=== PATIENT | male | born 1950 | race Caucasian/White ===

== ENCOUNTER 2017-02-04 14:27 | Emergency (ER) | payer MEDICARE, OTHER ==
[~2017-02-04] VITALS: Ht 175.3 cm; Wt 115.0 kg
[~2017-02-04 14:27] MED LIST: BAYER ASA325 MG PO; CIPROFLOXACN500 MG PO; CRESTOR10 MG PO; DEXILANT60 MG PO; E400400 UNIT OR; EXFORGE1 TA1 OR; EXFORGE1 TAB PO; FOLBEE OR; FOLBEE PO; GNP ASPIRIN325 M1 OR; LOVAZA1 GM PO; MULTIVITAM10 OR; NIASPAN1000 ER PO; ONDANSETRON4 MG PO; PREDNISONE20 MG PO; SOLU-MEDROL125 MG IM; TRICOR145 MG PO
[2017-02-04] MEDS ORDERED: DOCUSATE CAL240 MG PO (14:46)
[2017-02-04] MEDS ORDERED: FE TABS325 MG PO (14:47)
[2017-02-04] MEDS ORDERED: NORCO1 TA1 PO (14:48)
[2017-02-04 15:29] LABS: HEMATOCRIT 41.9 % (39.0-50.0); HEMOGLOBIN 13.5 g/dl (14.0-18.0); IMMATURE GRANULOCYTES 0.2 % (0.0-1.0); MEAN CELL VOLUME 78.8 fL CALC (80.0-100.0); MEAN CORPUSCULAR HGB 25.4 pG CALC (26.0-32.0); MEAN CORPUSCULAR HGB CONC 32.2 g/L CALC (32.0-36.0); NEUT# 6.37 thou/uL (1.82-7.42); RED BLOOD COUNT 5.32 mill/uL (4.70-6.10); RED CELL DISTRI WIDTH 15.4 % (11.5-15.5)
[2017-02-04 15:39] LABS: ALBUMIN 4.4 g/dL (3.2-5.0); ALKALINE PHOSPHATASE 55 u/l (38-126); AMYLASE 59 u/l (30-110); ANION GAP 18 (6-22 (CALC)); BILIRUBIN, TOTAL 0.6 mg/dL (0.0-1.4); BUN 20 mg/dL (8-23); BUN/CREATININE RATIO 14 (12-20 (CALC)); CALCIUM 9.8 mg/dL (8.4-10.2); CARBON DIOXIDE 25 mmol/l (22-30); CHLORIDE 102 mmol/l (95-108); CREATININE 1.4 mg/dL (0.7-1.3); GFR 51 ML/MIN (>=60 (CALC)); GFR FOR AFR.AMER. > 60 ML/MIN (>=60 (CALC)); GLUCOSE 114 mg/dL (82-115); LIPASE 78 u/l (23-300); POTASSIUM 4.2 mmol/l (3.5-5.1); SGOT/AST 30 u/l (19-48); SGPT/ALT 52 u/l (11-66); SODIUM 141 mmol/l (137-146); TOTAL PROTEIN 8.2 g/dL (6.3-8.2)
[2017-02-04 15:52] LABS: MYOGLOBIN 17 ng/mL (0 - 121)
[2017-02-04 17:14] LABS: URINE BILIRUBIN - DIPSTICK NEGATIVE (NEGATIVE); URINE BLOOD DIPSTICK NEGATIVE (NEGATIVE); URINE CLARITY CLEAR; URINE COLOR YELLOW; URINE GLUCOSE - DIPSTICK NEGATIVE (NEGATIVE); URINE KETONE NEGATIVE (NEGATIVE); URINE LEUK ESTERASE NEGATIVE (NEGATIVE); URINE NITRITE - DIPSTICK NEGATIVE (Negative); URINE PH 6.5 (4.5-8.0); URINE PROTEIN - DIPSTICK NEGATIVE (NEG-TRACE); URINE UROBILINOGEN - DIPSTICK 0.2 E.U./dL (0.2)
[2017-02-04 21:12] VITALS: BP 110/57
== END 2017-02-04 21:20 ==
LOC: ED 14:27
PROVIDERS: Emergency Medicine
DX: G89.18 Other acute postprocedural pain (principal); R10.84 Generalized abdominal pain; K59.00 Constipation, unspecified; R11.2 Nausea with vomiting, unspecified; I10 Essential (primary) hypertension
CPT/HCPCS: Q9967

== ENCOUNTER 2018-04-08 15:57 | Emergency (ER) | payer MEDICARE, OTHER ==
[~2018-04-08] VITALS: Ht 175.3 cm; Wt 101.0 kg
[~2018-04-08 15:57] MED LIST changes: +DOCUSATE CAL240 MG PO; +FE TABS325 MG PO; +NORCO1 TA1 PO
[2018-04-08] MEDS ORDERED: ASPIRIN81 MG PO (16:36)
[2018-04-08 17:17] LABS: HEMOGLOBIN 15.1 g/dl (14.0-18.0); IMMATURE GRANULOCYTES 0.3 % (0.0-1.0); MEAN CELL VOLUME 83.5 fL CALC (80.0-100.0); MEAN CORPUSCULAR HGB 28.7 pG CALC (26.0-32.0); MEAN CORPUSCULAR HGB CONC 34.3 g/L CALC (32.0-36.0); NEUT# 2.79 thou/uL (1.82-7.42); RED BLOOD COUNT 5.27 mill/uL (4.70-6.10); RED CELL DISTRI WIDTH 13.1 % (11.5-15.5)
[2018-04-08 17:24] LABS: CREATININE 1.8 mg/dL (0.7-1.3); POTASSIUM 4.4 mmol/l (3.5-5.1)
[2018-04-08 21:17] VITALS: BP 138/63
== END 2018-04-08 21:05 | disposition short-term general hospital (02) ==
LOC: ED 15:57
PROVIDERS: Family Medicine
DX: T65.891A Toxic effect of other specified substances, accidental (unintentional), initial encounter (principal); T78.2XXA Anaphylactic shock, unspecified, initial encounter; Y92.003 Bedroom of unspecified non-institutional (private) residence as the place of occurrence of the external cause; I10 Essential (primary) hypertension; B19.20 Unspecified viral hepatitis C without hepatic coma

== ENCOUNTER 2018-11-15 02:34 | Emergency (ER) | payer MEDICARE, OTHER ==
[~2018-11-15] VITALS: Ht 175.3 cm; Wt 100.0 kg
[~2018-11-15 02:34] MED LIST changes: +ASPIRIN81 MG PO
[2018-11-15 03:49] LABS: URINE BILIRUBIN - DIPSTICK NEGATIVE (NEGATIVE); URINE BLOOD DIPSTICK NEGATIVE (NEGATIVE); URINE COLOR YELLOW; URINE GLUCOSE - DIPSTICK NEGATIVE (NEGATIVE); URINE KETONE NEGATIVE (NEGATIVE); URINE LEUK ESTERASE NEGATIVE (NEGATIVE); URINE NITRITE - DIPSTICK NEGATIVE (Negative); URINE PROTEIN - DIPSTICK NEGATIVE (NEG-TRACE)
[2018-11-15 03:50] LABS: HEMATOCRIT 42.2 % (39.0-50.0); HEMOGLOBIN 14.8 g/dl (14.0-18.0); IMMATURE GRANULOCYTES 0.2 % (0.0-5.0); MEAN CELL VOLUME 82.4 fL CALC (80.0-100.0); MEAN CORPUSCULAR HGB 28.9 pG CALC (26.0-32.0); MEAN CORPUSCULAR HGB CONC 35.1 g/L CALC (32.0-36.0); NEUT# 1.96 thou/uL (1.82-7.42); RED BLOOD COUNT 5.12 mill/uL (4.70-6.10); RED CELL DISTRI WIDTH 13.3 % (11.5-15.5)
[2018-11-15 04:15] LABS: ALBUMIN 4.3 g/dL (3.2-5.0); ALKALINE PHOSPHATASE 56 u/l (38-126); AMYLASE < 30 u/l (30-110); ANION GAP 15 (6-22 (CALC)); BILIRUBIN, TOTAL 0.7 mg/dL (0.0-1.4); BUN 16 mg/dL (8-23); BUN/CREATININE RATIO 14 (12-20 (CALC)); CARBON DIOXIDE 23 mmol/l (22-30); CHLORIDE 108 mmol/l (95-108); CREATININE 1.2 mg/dL (0.7-1.3); GFR 60 ML/MIN (>=60 (CALC)); GFR FOR AFR.AMER. > 60 ML/MIN (>=60 (CALC)); LIPASE 79 u/l (23-300); SODIUM 142 mmol/l (137-146); TOTAL PROTEIN 7.2 g/dL (6.3-8.2)
[2018-11-15 04:19] LABS: SGOT/AST 59 u/l (19-48)
[2018-11-15 07:54] VITALS: BP 147/62
== END 2018-11-15 08:05 | disposition home or self-care (01) ==
LOC: ED 02:34
PROVIDERS: Emergency Medicine
DX: N48.89 Other specified disorders of penis (principal); R10.30 Lower abdominal pain, unspecified; R09.02 Hypoxemia; I10 Essential (primary) hypertension; E78.5 Hyperlipidemia, unspecified; B19.20 Unspecified viral hepatitis C without hepatic coma
CPT/HCPCS: Q9967

== ENCOUNTER 2021-07-18 09:39 | Emergency (ER) | payer MEDICARE, OTHER ==
[~2021-07-18] VITALS: Ht 175.3 cm; Wt 95.5 kg
[2021-07-18] MEDS ORDERED: EXFORGE1 TA2 PO (10:07)
[2021-07-18] MEDS ORDERED: RABEPRAZOLE SOD20 MG PO (10:08)
[2021-07-18] MEDS ORDERED: PROSTAT PO (10:10)
[2021-07-18] MEDS ORDERED: MULTI VIT PO (10:11)
[2021-07-18] MEDS ORDERED: VITAMIN E400 UNIT PO (10:12)
[2021-07-18] MEDS ORDERED: TORADOL PO (12:12)
[2021-07-18 12:13] VITALS: BP 160/84
== END 2021-07-18 12:20 | disposition home or self-care (01) ==
LOC: ED 09:39
DX: S70.01XA Contusion of right hip, initial encounter (principal); I10 Essential (primary) hypertension; B19.20 Unspecified viral hepatitis C without hepatic coma; E78.5 Hyperlipidemia, unspecified; K21.9 Gastro-esophageal reflux disease without esophagitis; W55.22XA Struck by cow, initial encounter; Y93.89 Activity, other specified; Y92.009 Unspecified place in unspecified non-institutional (private) residence as the place of occurrence of the external cause

== ENCOUNTER 2022-03-24 05:00 | Observation (INO) | payer MEDICARE, OTHER ==
[2022-03-24] VITALS (9 sets, daily range): BP systolic 107–177; BP diastolic 39–81
[~2022-03-24] VITALS: Ht 175.3 cm; Wt 95.0 kg
[~2022-03-24 05:00] MED LIST changes: +EXFORGE1 TA1 PO; +LOVAZA1 CAP PO; -LOVAZA1 GM PO; +MULTI VIT PO; +PROSTAT PO; +RABEPRAZOLE SOD20 MG PO; +TORADOL PO; +VITAMIN E400 UNIT PO
[2022-03-24 05:57] LABS: HEMATOCRIT 44.1 % (39.0-50.0); HEMOGLOBIN 14.8 g/dl (14.0-18.0); IMMATURE GRANULOCYTES 0.3 % (0.0-5.0); MEAN CELL VOLUME 86.6 fL CALC (80.0-100.0); MEAN CORPUSCULAR HGB 29.1 pG CALC (26.0-32.0); MEAN CORPUSCULAR HGB CONC 33.6 g/dL CAL (32.0-36.0); NEUT# 2.68 thou/uL (1.82-7.42); RED BLOOD COUNT 5.09 mill/uL (4.70-6.10); RED CELL DISTRI WIDTH 13.1 % (11.5-15.5)
[2022-03-24 06:06] LABS: ALBUMIN 4.4 g/dL (3.2-5.0); ALKALINE PHOSPHATASE 42 u/l (38-126); AMYLASE 60 u/l (30-110); ANION GAP 14 (6-22 (CALC)); BILIRUBIN, TOTAL 0.4 mg/dL (0.0-1.4); BUN 19 mg/dL (8-23); BUN/CREATININE RATIO 13 (12-20 (CALC)); CARBON DIOXIDE 27 mmol/l (22-30); CHLORIDE 107 mmol/l (95-108); CREATININE 1.5 mg/dL (0.7-1.3); GFR FOR AFR.AMER. 56 ML/MIN (>=60 (CALC)); GFR OTHER RACES 46 ML/MIN (>=60 (CALC)); LIPASE 80 u/l (23-300); POTASSIUM 3.9 mmol/l (3.5-5.1); SGOT/AST 22 u/l (19-48); SODIUM 144 mmol/l (137-146); TOTAL PROTEIN 7.5 g/dL (6.3-8.2)
[2022-03-24 06:15] LABS: ACT PARTIAL THROMBO TIME 22.7 SECONDS (20.0-32.5); PROTHROMBIN TIME 10.3 SECONDS (9.0-12.5)
[2022-03-24 06:18] LABS: MYOGLOBIN 35 ng/mL (0 - 121)
[2022-03-24 06:19] LABS: D-DIMER 1.03 mg/L (0.19-0.60)
[2022-03-24] MEDS ORDERED: OMEPRAZOLE DR20 MG PO (13:02)
[2022-03-25 00:46] VITALS: BP 123/66
[2022-03-25 05:42] VITALS: BP 111/48
[2022-03-25 07:03] LABS: HEMATOCRIT 39.7 % (39.0-50.0); HEMOGLOBIN 13.3 g/dl (14.0-18.0); IMMATURE GRANULOCYTES 0.2 % (0.0-5.0); MEAN CELL VOLUME 87.3 fL CALC (80.0-100.0); MEAN CORPUSCULAR HGB 29.2 pG CALC (26.0-32.0); MEAN CORPUSCULAR HGB CONC 33.5 g/dL CAL (32.0-36.0); NEUT# 2.48 thou/uL (1.82-7.42); RED BLOOD COUNT 4.55 mill/uL (4.70-6.10); RED CELL DISTRI WIDTH 13.2 % (11.5-15.5)
[2022-03-25 07:15] LABS: ANION GAP 12 (6-22 (CALC)); BUN 17 mg/dL (8-23); BUN/CREATININE RATIO 14 (12-20 (CALC)); CARBON DIOXIDE 26 mmol/l (22-30); CHLORIDE 107 mmol/l (95-108); CREATININE 1.2 mg/dL (0.7-1.3); GFR FOR AFR.AMER. > 60 ML/MIN (>=60 (CALC)); GFR OTHER RACES 60 ML/MIN (>=60 (CALC)); POTASSIUM 4.4 mmol/l (3.5-5.1); SODIUM 140 mmol/l (137-146)
[2022-03-25 07:28] VITALS: BP 118/40
[2022-03-25 08:00] VITALS: BP 143/68
[2022-03-25 09:57] VITALS: BP 121/53
[2022-03-25 10:53] VITALS: BP 143/68
[2022-03-25] MEDS ORDERED: CARAFATE1 GM/10 ML PO (15:23)
== END 2022-03-25 14:37 | disposition home or self-care (01) ==
LOC: ED 05:00 → ED-I 08:21 → ED 08:40 → MS2 08:41
PROVIDERS: Family Medicine; ADMIT Internal Medicine; ATTEND Internal Medicine
DX: K21.9 Gastro-esophageal reflux disease without esophagitis (principal); I10 Essential (primary) hypertension; E78.5 Hyperlipidemia, unspecified; B19.20 Unspecified viral hepatitis C without hepatic coma; K76.0 Fatty (change of) liver, not elsewhere classified; T47.1X6A Underdosing of other antacids and anti-gastric-secretion drugs, initial encounter; Z91.128 Patient's intentional underdosing of medication regimen for other reason; Z20.822 Contact with and (suspected) exposure to COVID-19
CPT/HCPCS: Q9967; S0164

== ENCOUNTER 2022-04-19 11:59 | Inpatient (IN) | payer MEDICARE, OTHER ==
[~2022-04-19] VITALS: Ht 175.3 cm; Wt 95.4 kg
[2022-04-19] VITALS (25 sets, daily range): BP systolic 85–168; BP diastolic 33–85
[~2022-04-19 11:59] MED LIST changes: +CARAFATE1 GM/10 ML PO; +OMEPRAZOLE DR20 MG PO
--- NOTE | 2022-04-19 12:03 | NUR ---
PT TO ROOM VIA WC
--- NOTE | 2022-04-19 12:42 | NUR ---
Reassessment of patient completed. No distress noted.
[2022-04-19 12:43] LABS: HEMATOCRIT 40.3 % (39.0-50.0); HEMOGLOBIN 13.7 g/dl (14.0-18.0); IMMATURE GRANULOCYTES 0.1 % (0.0-5.0); MEAN CELL VOLUME 85.7 fL CALC (80.0-100.0); MEAN CORPUSCULAR HGB 29.1 pG CALC (26.0-32.0); NEUT# 5.42 thou/uL (1.82-7.42); RED BLOOD COUNT 4.7 mill/uL (4.70-6.10); RED CELL DISTRI WIDTH 13.5 % (11.5-15.5)
[2022-04-19 12:57] LABS: ALBUMIN 4.2 g/dL (3.2-5.0); ALKALINE PHOSPHATASE 46 u/l (38-126); ANION GAP 11 (6-22 (CALC)); BUN 10 mg/dL (8-23); BUN/CREATININE RATIO 9 (12-20 (CALC)); CARBON DIOXIDE 26 mmol/l (22-30); CHLORIDE 106 mmol/l (95-108); CREATININE 1.1 mg/dL (0.7-1.3); GFR FOR AFR.AMER. > 60 ML/MIN (>=60 (CALC)); GFR OTHER RACES > 60 ML/MIN (>=60 (CALC)); POTASSIUM 3.7 mmol/l (3.5-5.1); SODIUM 140 mmol/l (137-146); TOTAL PROTEIN 7.3 g/dL (6.3-8.2)
[2022-04-19 12:58] LABS: BILIRUBIN, TOTAL 1.2 mg/dL (0.0-1.4); SGOT/AST 43 u/l (19-48)
[2022-04-19 13:35] LABS: C-REACTIVE PROTEIN 7.9 mg/dL (0-0.9)
--- NOTE | 2022-04-19 15:58 | NUR ---
Reassessment of patient completed. No distress noted.
--- NOTE | 2022-04-19 16:26 | NUR ---
PATIENT AWAITING ROOM ASSIGNMENT
--- NOTE | 2022-04-19 17:02 | NUR ---
Reassessment of patient completed. No distress noted.
--- NOTE | 2022-04-19 17:02 | NUR ---
PATIENT OFFERED ADDITIONAL WATER.
--- NOTE | 2022-04-19 19:11 | NUR ---
TRANSITION OF CARE REPORT TO RESIDENTIAL MANAGER RN
--- NOTE | 2022-04-19 19:15 | NUR ---
TELEPHONE REPORT GIVEN TO Matty GUZMAN RN AT THIS TIME.
--- NOTE | 2022-04-19 19:55 | NUR ---
PT PLACED ON TELEMETRY. TRANSPORTED TO ROOM 269 VIA STRETCHER WITH 02 AT 4L/MIN. HIM CLERK. PATENT IV TO L-FA 20G SALINE LOCK. ADDITIONAL REPORT PROVIDED TO Matty GUZMAN RN AT BEDSIDE.
--- NOTE | 2022-04-19 22:00 | NUR ---
PATIENT ARRIVED TO FLOOR BY BED HOOKED TO O2 @ 4LPM VIA NC, REPORT GIVEN BY NURSE MIRANDA, PATIENT AMBULATORY. ASISTED IN BED, PATIENT ORIENTED TO ROOM AND CALL LIGHT SYSTEM, WITH SALINE LOCK ON LFA G20 AND G20 ON LAC BOTH PATENT AND FLUSHES WELL, PATIENT STATED COUGHING 2DAYS AGO, AND TESTED POSITIVE COVID ALSO, PATIENT DENIES PAIN AT THIS TIME, ADMISSION ASSESSMENT COMPLETED, CALL LIGHT IN REACH.
[2022-04-20] VITALS (8 sets, daily range): BP systolic 100–137; BP diastolic 52–62
--- NOTE | 2022-04-20 | NUR ---
PATIENT RESTING IN BED, AWAKE, DENIES PAIN USING CELLPHONE, NOT IN DISTRESS CALL LIGHT IN REACH.
--- NOTE | 2022-04-20 04:00 | NUR ---
PATIENT RESTING IN BED, EYES CLOSED, REMAINS ON O2 @ 4LPM VIA NC, NON LABORED BREATHING CALL LIGHT IN REACH.
--- NOTE | 2022-04-20 04:20 | NUR ---
PATINET IN BED RESTING WITH EYES CLOSED BREATHING EVEN AND UNLABORED. NO S/S OF PAIN NOTED. CALL LIGHT IN REACH AND BED IN LOWEST POSITON. CONTINUE TO MONITOR.
[2022-04-20 04:57] LABS: HEMATOCRIT 35.5 % (39.0-50.0); HEMOGLOBIN 12.1 g/dl (14.0-18.0); IMMATURE GRANULOCYTES 0.2 % (0.0-5.0); MEAN CELL VOLUME 86.4 fL CALC (80.0-100.0); MEAN CORPUSCULAR HGB 29.4 pG CALC (26.0-32.0); MEAN CORPUSCULAR HGB CONC 34.1 g/dL CAL (32.0-36.0); NEUT# 3.74 thou/uL (1.82-7.42); RED BLOOD COUNT 4.11 mill/uL (4.70-6.10); RED CELL DISTRI WIDTH 13.7 % (11.5-15.5)
[2022-04-20 05:18] LABS: ALKALINE PHOSPHATASE 38 u/l (38-126); ANION GAP 11 (6-22 (CALC)); BUN 12 mg/dL (8-23); BUN/CREATININE RATIO 13 (12-20 (CALC)); CARBON DIOXIDE 24 mmol/l (22-30); CHLORIDE 109 mmol/l (95-108); GFR FOR AFR.AMER. > 60 ML/MIN (>=60 (CALC)); GFR OTHER RACES > 60 ML/MIN (>=60 (CALC)); MAGNESIUM 1.7 mg/dL (1.6-2.3); SGOT/AST 50 u/l (19-48); SODIUM 139 mmol/l (137-146); TOTAL PROTEIN 5.9 g/dL (6.3-8.2)
[2022-04-20 05:23] LABS: ALBUMIN 3.3 g/dL (3.2-5.0); BILIRUBIN, TOTAL 0.6 mg/dL (0.0-1.4)
[2022-04-20 06:24] LABS: URINE BILIRUBIN - DIPSTICK NEGATIVE (NEGATIVE); URINE BLOOD DIPSTICK NEGATIVE (NEGATIVE); URINE COLOR YELLOW; URINE GLUCOSE - DIPSTICK NEGATIVE (NEGATIVE); URINE KETONE NEGATIVE (NEGATIVE); URINE LEUK ESTERASE NEGATIVE (NEGATIVE); URINE NITRITE - DIPSTICK NEGATIVE (Negative); URINE PROTEIN - DIPSTICK NEGATIVE (NEG-TRACE); URINE SPECIFIC GRAVITY 1.015
--- NOTE | 2022-04-20 08:19 | NUR ---
PT LAYING IN SEMI [place] POSTION. COMPLAINING OF SEEING CIRCLES. VITALS OBTAINED BP: 118/63 HR: 67 SPO2: 96 ON O2. PT WAS ON 4L ABLE TO WEEN DOWN TO 2.5L OF 02. STATING 96-98%. NIH PERFOMRED SCORE OF 0. ASSESSMENT ALLOWED. LUNGS CLEAR UPPER/LOWER LOBES ANTERIOR/ POSTERIOR. IV 20 LFA INFUSING NS PER EMAR. IV 20 LAC SL FLUSHED. PT IS A&O X3. NOTIFIED.
--- NOTE | 2022-04-20 12:35 | NUR ---
PT EATING LUNCH. STATES NO NEEDS AT THIS TIME. O2 IN PLACE VIA NC @2.5L. IVF INFUSING PER EMAR. IV PATENT. TELE MONITOR IN PLACE, CONTINOUS MONITORING PER ED. FALL/SAFTEY PRECAUTION IN PLACE. CALL LIGHT WITHIN REACH.
--- NOTE | 2022-04-20 15:44 | NUR ---
PT RESTING WATCHING TV. IVF INFUSING PER EMAR. STATES NO PAIN/NEEDS AT THIS TIME. FALL/SAFTEY PRCAUTION IN PLACE. CALL LIGHT WITHIN REACH.
--- NOTE | 2022-04-20 18:00 | NUR ---
PT RESTING IN ROOM. BREATHING EVEN AND UNLABORED. TELE MONITOR IN PLACE, CONTINOUS MONITORING PER ED. IVF INFUSING PER EMAR. FALL/SAFTEY PRECAUTION IN PLACE. CALL LIGHT WITHIN REACH.
--- NOTE | 2022-04-20 20:20 | NUR ---
PATIENT IN BED RESTING LOOKING AT THE WINDOW. DENIES PAIN OR DISCOMFORT. NO S/S OF DISTRESS NOTED AT THIS TIME. ASSESMENT COMPLETED AT THIS TIME PATIENT IN AIRBORNE ISSOLATION. CALL LIGHT IN REACH BED IN LOWEST POSITION.
[2022-04-21] VITALS (8 sets, daily range): BP systolic 115–146; BP diastolic 45–71
--- NOTE | 2022-04-21 00:35 | NUR ---
PATIENT IN BED RESTING WITH EYES CLOSED BREATHING EVEN AND UNLABORED. NO S/S OF DISTRESS NOTED. CALL LIGHT IN REACH AND BED IN LOWEST POSTION. CONTINUE TO MONITOR.
--- NOTE | 2022-04-21 04:20 | NUR ---
PATIENT IN BED RESTING WITH EYES CLOSED BREATHING EVEN AND UNLABORED. NO S/S OF DISTRESS NOTED. CALL LIGHT IN REACH AND BED IN LOWEST POSITION.
[2022-04-21 05:13] LABS: HEMATOCRIT 34.9 % (39.0-50.0); HEMOGLOBIN 11.7 g/dl (14.0-18.0); IMMATURE GRANULOCYTES 0.2 % (0.0-5.0); MEAN CORPUSCULAR HGB 29.2 pG CALC (26.0-32.0); MEAN CORPUSCULAR HGB CONC 33.5 g/dL CAL (32.0-36.0); NEUT# 3.76 thou/uL (1.82-7.42); RED BLOOD COUNT 4.01 mill/uL (4.70-6.10); RED CELL DISTRI WIDTH 13.9 % (11.5-15.5)
[2022-04-21 05:32] LABS: ALBUMIN 3.2 g/dL (3.2-5.0); ALKALINE PHOSPHATASE 37 u/l (38-126); ANION GAP 7 (6-22 (CALC)); BUN 20 mg/dL (8-23); BUN/CREATININE RATIO 19 (12-20 (CALC)); CARBON DIOXIDE 26 mmol/l (22-30); CHLORIDE 110 mmol/l (95-108); GFR FOR AFR.AMER. > 60 ML/MIN (>=60 (CALC)); GFR OTHER RACES > 60 ML/MIN (>=60 (CALC)); MAGNESIUM 1.8 mg/dL (1.6-2.3); POTASSIUM 3.8 mmol/l (3.5-5.1); SGOT/AST 28 u/l (19-48); SODIUM 140 mmol/l (137-146); TOTAL PROTEIN 5.7 g/dL (6.3-8.2)
[2022-04-21 05:37] LABS: BILIRUBIN, TOTAL 0.3 mg/dL (0.0-1.4)
--- NOTE | 2022-04-21 06:17 | NUR ---
ELISA ROTHMAN NOTIFIED OF A CRITICAL LAB. PROCALCITONIN 0.373.
--- NOTE | 2022-04-21 07:00 | NUR ---
REPORT RECIEVED FROM DOG FOOD SHREDDER OPERATOR CYANIDE POT TENDER
--- NOTE | 2022-04-21 09:41 | NUR ---
PT RESTING IN BED BREAHTING EVEN AND UNLABORED. MOIST COUGH NOTED. LUNG SOUNDS ARE DIMINISHED IN UPPER/LOWER LOBES. O2 IN PLACE VIA NC @2L. STATING 96-98%. ABLE TO WEEN PT 1L OF O2. STATING 95-97%. PT STATING NO FEELINGS OF SOB. ASSESSMENT ALLOWED. UPDATED PT ON CURRENT POC. PT C/OF DIZZINESS. MEDICATED SEE EMAR. PT ABLE TO TAKE PO MEDS WELL. TELE MONITOR IN PLACE,CONTINOUS MONITORING PER ED. FALL/SAFTEY PRECAUTION IN PLACE. ISOLATION PRECAUTION IN PLACE. IV: 20 LFA INFUSING IVF PER EMAR. 20 LAC SL. FLUSHED. IV PATENT. CALL LIGHT WITHIN REACH
--- NOTE | 2022-04-21 12:30 | NUR ---
PT RESTING IN BED. IVF/ MEDICATION INFUSING PER EMAR. IV PATENT. STATES NO DIZZINESS. PT IS A&O X3. TELE MONITOR IN PLACE. COTNINOUS MONITORING PER ED. FAL/SAFTEY PRECAUTION IN PLACE. CALL LIGHT WITHIN REACH.
--- NOTE | 2022-04-21 14:08 | NUR ---
PT RESTIGN STATES NO PAIN NO N/V. NO DIZZINESSS AT THIS TIME. IVF IN FUSING PER EMAR. IV PATENT INTACT. STATES NO NEEDS AT THIS TIME. NO DISTRESS NOTED. FALL/SAFTEY PRECAUTION IN PLACE. CALL LIGHT WITHIN REACH
--- NOTE | 2022-04-21 16:05 | NUR ---
PT SITTING UP STATING READY FOR SHOWER, DISCONNECTED PT. PT STATES NO PAIN, DIZZINESS. FALL/SAFTEY PRECAUTION IN PLACE. CALL LIGHT WITHIN REACH
--- NOTE | 2022-04-21 20:40 | NUR ---
PATIENT IN BED RESTING WATCHING TV. RESPIRATION EVEN AND UNLABORED. ASSESMENT CPMPLETED. JAYLENE PAIN OR DISCOMFORT AT THIS TIME. PATIENT CONTINUES ON TELTE. O2 D/C PT O2 AT 94 ROOM AIR AT THIS TIME. CALL LIGHT IN REACH AND BED IN LOWEST POSITION. CONTINUE TO MONITOR.
[2022-04-22] VITALS (16 sets, daily range): BP systolic 130–177; BP diastolic 55–86
--- NOTE | 2022-04-22 00:50 | NUR ---
PATIENT IN BED RESTING WITH EYES CLSOED BREATHING EVEN AND UNLABORED. NO S/S OF DISTRESS NOTED. ER TELE MONITORING REPORT PT HR IS 36. VITALS OBTAIN BP 137/58 HR 45 R 18 O2 90. PT DENIES PAIN OR DISCOMFORT. CALL LIGHT IN REACH AND BED IN LOWEST POSITION. CONTINIUE TO MONITOR.
--- NOTE | 2022-04-22 01:00 | NUR ---
DR. PÉREZ NOTIFIED OF PATIENT LOW HR. ORDER TO D/C REMDESIVIR 100MG. CONTINIUE TO MONITOR HR AND IF CONTINIUES TO DROP BELOW 40 SEND PT TO ICU FOR MONITORING.
--- NOTE | 2022-04-22 02:35 | NUR ---
I WAS NOTIFIED BY ER TELE MONITORING THAT PT RUN A V-TACH 4 BEATS AND RETURN TO S-KRISTINE 41. PT IN BED RESTING WITH EYES CLOSED BREATING EVEN AND UNLABORED. NO S/S OF DISTRESS NOTED. WILL CONTINUE TO MONITOR.
--- NOTE | 2022-04-22 03:20 | NUR ---
PATIENT HR CONTINIUE TO DROP TO 37. PATIENT TRANSFER TO ICU ROOM [address] PÉREZ. BEDSIDE REPORT GIVEN TO JAYLA.
--- NOTE | 2022-04-22 03:25 | NUR ---
rec'd to icu1 per bed from [facility]. report rec'd per nils varghese. residential monitor shows sinus reji hr 51. denies distress. oriented to room. air/contact precautions cont.
--- NOTE | 2022-04-22 04:00 | NUR ---
lab here. blood drawn.
[2022-04-22 05:12] LABS: HEMATOCRIT 33.5 % (39.0-50.0); HEMOGLOBIN 11.3 g/dl (14.0-18.0); IMMATURE GRANULOCYTES 0.2 % (0.0-5.0); MEAN CELL VOLUME 87.2 fL CALC (80.0-100.0); MEAN CORPUSCULAR HGB 29.4 pG CALC (26.0-32.0); MEAN CORPUSCULAR HGB CONC 33.7 g/dL CAL (32.0-36.0); NEUT# 2.98 thou/uL (1.82-7.42); RED BLOOD COUNT 3.84 mill/uL (4.70-6.10); RED CELL DISTRI WIDTH 13.7 % (11.5-15.5)
--- NOTE | 2022-04-22 05:12 | NUR ---
xray here. pcxr obtained.
[2022-04-22 05:28] LABS: ANION GAP 9 (6-22 (CALC)); BUN 19 mg/dL (8-23); BUN/CREATININE RATIO 20 (12-20 (CALC)); CARBON DIOXIDE 25 mmol/l (22-30); CHLORIDE 110 mmol/l (95-108); CREATININE 0.9 mg/dL (0.7-1.3); GFR FOR AFR.AMER. > 60 ML/MIN (>=60 (CALC)); GFR OTHER RACES > 60 ML/MIN (>=60 (CALC)); MAGNESIUM 1.8 mg/dL (1.6-2.3); POTASSIUM 3.6 mmol/l (3.5-5.1); SODIUM 141 mmol/l (137-146)
--- NOTE | 2022-04-22 07:03 | NUR ---
Hand off report received from KRISTY Bhatia
[2022-04-22] MEDS ORDERED: FAMOTIDINE20 M1 PO (07:09)
[2022-04-22] MEDS ORDERED: EXFORGE1 TA1 PO (07:09)
--- NOTE | 2022-04-22 10:52 | NUR ---
6 minute ambulation test completed by RT, o2 95% at start, 94% at completion, MD aware.
[2022-04-22] MEDS ORDERED: AZITHROMYCIN500 MG PO (11:16)
[2022-04-22] MEDS ORDERED: OMNICEF300 M1 PO (11:16)
[2022-04-22] MEDS ORDERED: TAM75CAP PO (11:17)
[2022-04-22] MEDS ORDERED: DECADRON2 MG PO (11:18)
--- NOTE | 2022-04-22 13:19 | NUR ---
pATIENT ESCORTED TO PRIVATE VEHICHLE BY WHEELCHAIR, AWAKE AND ALERT, AMBULATORY WITHOUT ASSISTANCE, NO C/O PAIN OR DISCOMFORT, NO S/S OF DISTRESS NOTED, RESPIRATIONS EVEN AND UNLABORED ON ROOM AIR, DISCHARGE INSTRUCTIONS GIVEN, PATIENT VERBALIZED UNDERSTANDING OF DISCHARGE MED INSTRUCTIONS.
== END 2022-04-22 13:15 | disposition home or self-care (01) | DRG 177 ==
LOC: ED 11:59 → ED-I 16:50 → ED 17:21 → MS2 17:22 → ICU 04-22 01:00
PROVIDERS: Family Medicine; ADMIT Internal Medicine; ATTEND Internal Medicine
PROC: XW033E5 Introduction of Remdesivir Anti-infective into Peripheral Vein, Percutaneous Approach, New Technology Group 5 (ICD-10-PCS; principal; 2022-04-20)
DX: U07.1 COVID-19 (principal); J12.82 Pneumonia due to coronavirus disease 2019; J10.08 Influenza due to other identified influenza virus with other specified pneumonia; R09.02 Hypoxemia; I10 Essential (primary) hypertension; K21.9 Gastro-esophageal reflux disease without esophagitis; E78.5 Hyperlipidemia, unspecified; B19.20 Unspecified viral hepatitis C without hepatic coma
CPT/HCPCS: G0378; J1650; Q9967

== ENCOUNTER 2022-04-23 17:57 | Emergency (ER) | payer MEDICARE, OTHER ==
[~2022-04-23] VITALS: Ht 175.3 cm; Wt 95.4 kg
[~2022-04-23 17:57] MED LIST changes: +AZITHROMYCIN500 MG PO; +DECADRON2 MG PO; +FAMOTIDINE20 M1 PO; +OMNICEF300 M1 PO; +TAM75CAP PO
[2022-04-23 21:03] LABS: HEMATOCRIT 37.1 % (39.0-50.0); HEMOGLOBIN 12.9 g/dl (14.0-18.0); IMMATURE GRANULOCYTES 2.4 % (0.0-5.0); MEAN CELL VOLUME 84.3 fL CALC (80.0-100.0); MEAN CORPUSCULAR HGB 29.3 pG CALC (26.0-32.0); MEAN CORPUSCULAR HGB CONC 34.8 g/dL CAL (32.0-36.0); NEUT# 3.65 thou/uL (1.82-7.42); RED BLOOD COUNT 4.4 mill/uL (4.70-6.10); RED CELL DISTRI WIDTH 13.1 % (11.5-15.5)
[2022-04-23 21:27] LABS: ALBUMIN 3.9 g/dL (3.2-5.0); ALKALINE PHOSPHATASE 45 u/l (38-126); ANION GAP 13 (6-22 (CALC)); BILIRUBIN, TOTAL 0.4 mg/dL (0.0-1.4); BUN 17 mg/dL (8-23); BUN/CREATININE RATIO 18 (12-20 (CALC)); CARBON DIOXIDE 25 mmol/l (22-30); CHLORIDE 107 mmol/l (95-108); GFR FOR AFR.AMER. > 60 ML/MIN (>=60 (CALC)); GFR OTHER RACES > 60 ML/MIN (>=60 (CALC)); POTASSIUM 3.7 mmol/l (3.5-5.1); SGOT/AST 24 u/l (19-48); SODIUM 140 mmol/l (137-146); TOTAL PROTEIN 6.9 g/dL (6.3-8.2)
[2022-04-23 23:00] VITALS: BP 145/68
== END 2022-04-23 23:10 | disposition home or self-care (01) ==
LOC: ED 17:57
PROVIDERS: Emergency Medicine
DX: I10 Essential (primary) hypertension (principal); U07.1 COVID-19; B19.20 Unspecified viral hepatitis C without hepatic coma; E78.5 Hyperlipidemia, unspecified; K21.9 Gastro-esophageal reflux disease without esophagitis

== ENCOUNTER 2022-04-24 22:41 | Emergency (ER) | payer MEDICARE, OTHER ==
[~2022-04-24] VITALS: Ht 175.3 cm; Wt 95.4 kg
[2022-04-24 23:00] VITALS: BP 174/93
[2022-04-25 00:33] LABS: HEMATOCRIT 38.5 % (39.0-50.0); HEMOGLOBIN 13.6 g/dl (14.0-18.0); IMMATURE GRANULOCYTES 2.8 % (0.0-5.0); MEAN CELL VOLUME 81.9 fL CALC (80.0-100.0); MEAN CORPUSCULAR HGB 28.9 pG CALC (26.0-32.0); MEAN CORPUSCULAR HGB CONC 35.3 g/dL CAL (32.0-36.0); NEUT# 4.6 thou/uL (1.82-7.42); RED BLOOD COUNT 4.7 mill/uL (4.70-6.10)
[2022-04-25 00:48] LABS: ALKALINE PHOSPHATASE 45 u/l (38-126); ANION GAP 12 (6-22 (CALC)); BILIRUBIN, TOTAL 0.5 mg/dL (0.0-1.4); BUN 23 mg/dL (8-23); BUN/CREATININE RATIO 23 (12-20 (CALC)); CARBON DIOXIDE 24 mmol/l (22-30); CHLORIDE 109 mmol/l (95-108); GFR FOR AFR.AMER. > 60 ML/MIN (>=60 (CALC)); GFR OTHER RACES > 60 ML/MIN (>=60 (CALC)); POTASSIUM 3.7 mmol/l (3.5-5.1); SGOT/AST 19 u/l (19-48); SODIUM 141 mmol/l (137-146); TOTAL PROTEIN 7.1 g/dL (6.3-8.2)
== END 2022-04-25 00:20 | disposition home or self-care (01) ==
LOC: ED 22:41
PROVIDERS: Emergency Medicine
DX: I10 Essential (primary) hypertension (principal); B19.20 Unspecified viral hepatitis C without hepatic coma; E78.5 Hyperlipidemia, unspecified; K21.9 Gastro-esophageal reflux disease without esophagitis

== ENCOUNTER → 2023-01-05 | Emergency (ER) | payer MEDICARE, OTHER ==
[~2023-01-05] VITALS: Ht 175.3 cm; Wt 240.0 kg
[2023-01-05 16:21] VITALS: BP 138/78
== END | disposition home or self-care (01) ==
LOC: ED 15:08
DX: J06.9 Acute upper respiratory infection, unspecified (principal); I10 Essential (primary) hypertension; E78.00 Pure hypercholesterolemia, unspecified; K21.9 Gastro-esophageal reflux disease without esophagitis; B19.20 Unspecified viral hepatitis C without hepatic coma; Z20.822 Contact with and (suspected) exposure to COVID-19

== ENCOUNTER 2023-10-12 07:53 | Emergency (ER) | payer MEDICARE, OTHER ==
[2023-10-12] VITALS (11 sets, daily range): BP systolic 145–166; BP diastolic 71–96
[~2023-10-12] VITALS: Ht 175.3 cm; Wt 98.0 kg
[2023-10-12 09:40] LABS: BASO% 1.1 % (0-3); EOS% 2.7 % (0-8); HEMATOCRIT 44.5 % (39.0-50.0); HEMOGLOBIN 15.5 g/dl (14.0-18.0); IMMATURE GRANULOCYTES 0.2 % (0.0-5.0); LYMPH% 43.4 % (15-41); MEAN CELL VOLUME 83.2 fL CALC (80.0-100.0); MEAN CORPUSCULAR HGB CONC 34.8 g/dL CAL (32.0-36.0); MONO% 6.7 % (2-13); NEUT# 2.04 thou/uL (1.82-7.42); NEUT% 45.9 % (42-76); RED BLOOD COUNT 5.35 mill/uL (4.70-6.10); RED CELL DISTRI WIDTH 12.8 % (11.5-15.5)
[2023-10-12 09:48] LABS: ALBUMIN 4.3 g/dL (3.2-5.0); ALKALINE PHOSPHATASE 67 u/l (38-126); ANION GAP 14 (6-22 (CALC)); BILIRUBIN, TOTAL 0.9 mg/dL (0.2-1.3); BUN 15 mg/dL (8-23); BUN/CREATININE RATIO 14 (12-20 (CALC)); CARBON DIOXIDE 25 mmol/l (22-30); CHLORIDE 107 mmol/l (95-108); GFR FOR AFR.AMER. > 60 ML/MIN (>=60 (CALC)); GFR OTHER RACES > 60 ML/MIN (>=60 (CALC)); LIPASE 52 u/l (23-300); POTASSIUM 4.1 mmol/l (3.5-5.1); SGOT/AST 44 u/l (19-48); SODIUM 142 mmol/l (137-146); TOTAL PROTEIN 7.1 g/dL (6.3-8.2)
[2023-10-12 10:16] LABS: URINE BILIRUBIN - DIPSTICK Negative (NEGATIVE); URINE BLOOD DIPSTICK Negative (NEGATIVE); URINE GLUCOSE - DIPSTICK Negative (NEGATIVE); URINE KETONE Negative (NEGATIVE); URINE LEUK ESTERASE Negative (NEGATIVE); URINE NITRITE - DIPSTICK Negative (Negative); URINE PH 7.5 (4.5-8.0); URINE PROTEIN - DIPSTICK Negative (NEG-TRACE); URINE SPECIFIC GRAVITY 1.015; URINE UROBILINOGEN - DIPSTICK 0.2 E.U./dL (0.2)
[2023-10-12 10:18] LABS: URINE COLOR Yellow
[2023-10-12] MEDS ORDERED: AMOX/K CLAV875 M1 PO (11:28)
[2023-10-12] MEDS ORDERED: ZOFRAN4 MG/TAB PO (11:28)
== END 2023-10-12 11:55 | disposition home or self-care (01) ==
LOC: ED 07:53
PROVIDERS: Family Medicine
DX: R10.31 Right lower quadrant pain (principal); I10 Essential (primary) hypertension; B19.20 Unspecified viral hepatitis C without hepatic coma; Z90.49 Acquired absence of other specified parts of digestive tract
CPT/HCPCS: Q9967

== ENCOUNTER 2024-10-17 07:06 | Emergency (ER) | payer OTHER, MEDICARE ==
[~2024-10-17] VITALS: Ht 175.3 cm; Wt 100.0 kg
[2024-10-17] VITALS (23 sets, daily range): BP systolic 116–205; BP diastolic 63–101
[~2024-10-17 07:06] MED LIST changes: +AMOX/K CLAV875 M1 PO; +ZOFRAN4 MG/TAB PO
[2024-10-17] MEDS ORDERED: ASPIRIN 81 MG/TAB PO ONE (07:10)
[2024-10-17] MEDS ORDERED: NITROGLYCERIN 0.4 MG/TAB SL ONE (07:20)
[2024-10-17 07:26] LABS: BASO% 0.5 % (0-3); EOS% 1.8 % (0-8); HEMATOCRIT 45.6 % (39.0-50.0); IMMATURE GRANULOCYTES 0.3 % (0.0-5.0); LYMPH% 48.2 % (15-41); MEAN CELL VOLUME 83.4 fL CALC (80.0-100.0); MEAN CORPUSCULAR HGB 29.3 pG CALC (26.0-32.0); MEAN CORPUSCULAR HGB CONC 35.1 g/dL CAL (32.0-36.0); MONO% 6.7 % (2-13); NEUT# 2.67 thou/uL (1.82-7.42); NEUT% 42.5 % (42-76); RED BLOOD COUNT 5.47 mill/uL (4.70-6.10)
[2024-10-17] MEDS ORDERED: ALFUZOSIN HCL E10 MG PO (07:35)
[2024-10-17 07:36] LABS: ALBUMIN 4.6 g/dL (3.2-5.0); ALKALINE PHOSPHATASE 73 u/l (38-126); ANION GAP 11 (6-22 (CALC)); BILIRUBIN, TOTAL 1.2 mg/dL (0.2-1.3); CARBON DIOXIDE 28 mmol/l (22-30); CHLORIDE 107 mmol/l (95-108); POTASSIUM 4.3 mmol/l (3.5-5.1); SGOT/AST 62 u/l (19-48); SODIUM 141 mmol/l (137-146); TOTAL PROTEIN 7.7 g/dL (6.3-8.2)
[2024-10-17] MEDS ORDERED: PROSTATE SUPPOR PO (07:36)
[2024-10-17 07:41] LABS: BUN 17 mg/dL (8-23); BUN/CREATININE RATIO 15 (12-20 (CALC)); CREATININE 1.1 mg/dL (0.7-1.3); ESTIMATED GFR 70 ML/MIN (>=90 (CALC))
[2024-10-17] MEDS ORDERED: hydrALAZINE HCL 20 MG/ML VIAL(1 ML) IV ONE (10:40)
[2024-10-17] MEDS ORDERED: LABETALOL HCL 100 MG/20 ML VIAL IV ONE (11:25)
== END 2024-10-17 12:00 | disposition short-term general hospital (02) | DRG 313 ==
LOC: ED 07:06 → ED-I 10:20 → ED 12:00
PROVIDERS: Family Medicine
DX: R07.9 Chest pain, unspecified (principal)
CPT/HCPCS: J0360; J1920

== ENCOUNTER 2024-11-11 10:03 | Emergency (ER) | payer MEDICARE, OTHER ==
[~2024-11-11] VITALS: Ht 175.3 cm; Wt 90.7 kg
[~2024-11-11 10:03] MED LIST changes: +ALFUZOSIN HCL E10 MG PO; +PROSTATE SUPPOR PO
[2024-11-11 10:09] VITALS: BP 141/116
[2024-11-11 10:12] VITALS: BP 147/82
[2024-11-11] MEDS ORDERED: KETOROLAC TROMETHAMINE 30 MG/ML SDV IM ONE (10:25)
[2024-11-11 10:30] VITALS: BP 124/76
[2024-11-11 11:00] VITALS: BP 137/78
[2024-11-11] MEDS ORDERED: MOTRIN400 MG/TAB PO (11:05)
[2024-11-11] MEDS ORDERED: FLEXERIL5 M1 PO (11:05)
[2024-11-11 11:14] VITALS: BP 137/78
== END 2024-11-11 11:23 | disposition home or self-care (01) ==
LOC: ED 10:03
DX: M25.512 Pain in left shoulder (principal); I10 Essential (primary) hypertension; E78.5 Hyperlipidemia, unspecified; B19.20 Unspecified viral hepatitis C without hepatic coma